=== PATIENT | female | born 1960 | race Caucasian/White ===

== ENCOUNTER 2016-10-24 13:19 | Emergency (ER) | payer OTHER ==
[~2016-10-24] VITALS: Ht 162.6 cm; Wt 58.0 kg
[2016-10-24] MEDS ORDERED: LIDODERM 5% P1 PATCH TD (15:23)
[2016-10-24] MEDS ORDERED: FLEXERIL10 MG PO (15:23)
[2016-10-24 15:35] VITALS: BP 133/91
== END 2016-10-24 15:36 | disposition home or self-care (01) ==
LOC: EME 13:19
DX: S16.1XXA Strain of muscle, fascia and tendon at neck level, initial encounter (principal); S46.811A Strain of other muscles, fascia and tendons at shoulder and upper arm level, right arm, initial encounter; M62.830 Muscle spasm of back; X58.XXXA Exposure to other specified factors, initial encounter; F11.21 Opioid dependence, in remission; F10.21 Alcohol dependence, in remission; F17.200 Nicotine dependence, unspecified, uncomplicated; Z71.6 Tobacco abuse counseling
CPT/HCPCS: 99281; 99283